=== PATIENT | male | born 1985 | race Caucasian/White ===

== ENCOUNTER 2017-06-27 07:38 | Emergency (ER) | payer OTHER ==
[~2017-06-27] VITALS: Ht 182.9 cm; Wt 66.3 kg
[2017-06-27] MEDS ORDERED: KEFLEX500 MG PO (08:02)
[2017-06-27] MEDS ORDERED: BACTRIM,SEPT1 TABLET PO (08:02)
[2017-06-27 08:21] VITALS: BP 132/87
== END 2017-06-27 08:23 | disposition home or self-care (01) ==
LOC: EME 07:38
DX: L03.114 Cellulitis of left upper limb (principal); F14.10 Cocaine abuse, uncomplicated; B19.20 Unspecified viral hepatitis C without hepatic coma; F17.200 Nicotine dependence, unspecified, uncomplicated; Z88.0 Allergy status to penicillin
CPT/HCPCS: 99281; 99284

== ENCOUNTER 2017-06-29 13:18 | Emergency (ER) | payer OTHER ==
[~2017-06-29] VITALS: Ht 182.9 cm; Wt 69.5 kg
[~2017-06-29 13:18] MED LIST: BACTRIM,SEPT1 TABLET PO; KEFLEX500 MG PO
[2017-06-29 17:07] VITALS: BP 129/88
== END 2017-06-29 17:08 | disposition home or self-care (01) ==
LOC: EME 13:18
PROC: 0H9CXZZ Drainage of Left Upper Arm Skin, External Approach (ICD-10-PCS; principal; 2017-06-29)
DX: L02.414 Cutaneous abscess of left upper limb (principal); Z88.0 Allergy status to penicillin
CPT/HCPCS: 99281; 99284